=== PATIENT | male | born 1960 | race Two or more races ===

== ENCOUNTER 2021-01-09 09:59 | Day surgery (SDC) | payer BC, MEDICARE ==
[~2021-01-09] VITALS: Ht 185.4 cm; Wt 99.8 kg
[2021-01-09] MEDS ORDERED: LIDOCAINE 2%HCL (LOCAL ANESTH.) INJ 20ML MDV ONE (11:58)
[2021-01-09] MEDS ORDERED: ANGIOMAX 250 MG VIAL IV ONE (12:00)
[2021-01-09] MEDS ORDERED: VERAPAMIL 2.5MG/ML INJ 2ML VIAL IV ONE (12:01)
[2021-01-09] MEDS ORDERED: HEPARIN SODIUM (PORCINE) 5000 UNITS/ML 1ML VIAL ONE (12:01)
[2021-01-09] MEDS ORDERED: fentaNYL CITRATE 100 MCG/2 ML VL ONE (12:01)
[2021-01-09] MEDS ORDERED: MIDAZOLAM HCL 1MG/1ML-2 ML VIAL ONE (12:01)
[2021-01-09] MEDS ORDERED: SODIUM CHL 0.9% 0 ML ONE (12:11)
[2021-01-09] MEDS ORDERED: IODIXANOL 320MG/ML 100ML BTL IV ONE (12:21)
[2021-01-09] MEDS ORDERED: diphenhdrAMINE HCL 50 MG/1 ML VL ONE (12:24)
[2021-01-09] MEDS ORDERED: ASPI-231 PO (14:41)
[2021-01-09] MEDS ORDERED: POM PO (14:41)
[2021-01-09] MEDS ORDERED: ROSU20TA14 PO (14:41)
== END 2021-01-09 15:35 | disposition home or self-care (01) ==
LOC: CATH 09:59
PROVIDERS: ATTEND Internal Medicine
DX: R94.39 Abnormal result of other cardiovascular function study (principal); I25.118 Atherosclerotic heart disease of native coronary artery with other forms of angina pectoris; I10 Essential (primary) hypertension; E78.5 Hyperlipidemia, unspecified; I25.10 Atherosclerotic heart disease of native coronary artery without angina pectoris; F17.200 Nicotine dependence, unspecified, uncomplicated; Z20.822 Contact with and (suspected) exposure to COVID-19; Z98.890 Other specified postprocedural states; Z79.899 Other long term (current) drug therapy; Z79.82 Long term (current) use of aspirin
CPT/HCPCS: 93458; C1769; C1887; C1894; J1200; J1644; J2250; J3010; J7030; Q9967; U0003; 99152